=== PATIENT | female | born 1965 | race African-American/Black ===

== ENCOUNTER 2017-02-27 11:05 | Emergency (ER) | payer BC ==
[~2017-02-27] VITALS: Ht 162.6 cm; Wt 108.0 kg
[~2017-02-27 11:05] MED LIST: CIPRO250 MG PO; LORTAB 7.5 PO; NO HOME MEDS
[2017-02-27 13:30] LABS: HEMOGLOBIN 12.6 g/dl (12.0-16.0); IMMATURE GRANULOCYTES 0.2 % (0.0-1.0); MEAN CORPUSCULAR HGB 32.6 pG CALC (26.0-32.0); MEAN CORPUSCULAR HGB CONC 32.3 g/L CALC (32.0-36.0); NEUT# 3.4 thou/uL (2.00-7.15); RED BLOOD COUNT 3.86 mill/uL (4.20-5.60); RED CELL DISTRI WIDTH 13.3 % (11.5-15.5)
[2017-02-27 13:54] LABS: ALBUMIN 3.7 g/dL (3.2-5.0); ALKALINE PHOSPHATASE 101 u/l (38-126); ANION GAP 13 (6-22 (CALC)); BILIRUBIN, TOTAL 1.4 mg/dL (0.0-1.4); BUN 14 mg/dL (7-17); BUN/CREATININE RATIO 14 (12-20 (CALC)); CALCIUM 8.7 mg/dL (8.4-10.2); CARBON DIOXIDE 24 mmol/l (22-30); CHLORIDE 107 mmol/l (95-108); GFR 58 ML/MIN (>=60 (CALC)); GFR FOR AFR.AMER. > 60 ML/MIN (>=60 (CALC)); GLUCOSE 86 mg/dL (65-105); POTASSIUM 4.8 mmol/l (3.5-5.1); SGOT/AST 39 u/l (14-36); SGPT/ALT 16 u/l (9-52); SODIUM 140 mmol/l (137-146); TOTAL PROTEIN 7.7 g/dL (6.3-8.2)
[2017-02-27] MEDS ORDERED: BENADRYL 50MG C50 MG PO (13:55)
[2017-02-27] MEDS ORDERED: PREDNISONE10 MG PO (13:55)
[2017-02-27] MEDS ORDERED: CIMETIDINE400 M1 PO (13:55)
[2017-02-27 14:01] VITALS: BP 172/90
== END 2017-02-27 14:10 | disposition home or self-care (01) | DRG 916 ==
LOC: ED 11:05
PROVIDERS: Emergency Medicine
DX: T78.3XXA Angioneurotic edema, initial encounter (principal)

== ENCOUNTER 2022-11-30 13:31 | Emergency (ER) | payer BC ==
[~2022-11-30] VITALS: Ht 162.6 cm; Wt 94.8 kg
[~2022-11-30 13:31] MED LIST changes: +BENADRYL 50MG C50 MG PO; +CIMETIDINE400 M1 PO; +PREDNISONE10 MG PO
[2022-11-30 14:03] LABS: URINE BILIRUBIN - DIPSTICK NEGATIVE (NEGATIVE); URINE BLOOD DIPSTICK MODERATE (NEGATIVE); URINE COLOR YELLOW; URINE GLUCOSE - DIPSTICK NEGATIVE (NEGATIVE); URINE KETONE NEGATIVE (NEGATIVE); URINE PROTEIN - DIPSTICK NEGATIVE (NEG-TRACE); URINE SPECIFIC GRAVITY 1.025; URINE UROBILINOGEN - DIPSTICK 0.2 E.U./dL (0.2)
[2022-11-30 14:04] LABS: BASO% 0.1 % (0-3); EOS% 0.1 % (0-8); HEMATOCRIT 34.4 % (37.0-47.0); IMMATURE GRANULOCYTES 0.4 % (0.0-5.0); MEAN CELL VOLUME 97.2 fL CALC (80.0-100.0); MEAN CORPUSCULAR HGB 31.1 pG CALC (26.0-32.0); MONO% 4.4 % (2-13); NEUT# 8.36 thou/uL (2.00-7.15); RED BLOOD COUNT 3.54 mill/uL (4.20-5.60); RED CELL DISTRI WIDTH 14.8 % (11.5-15.5)
[2022-11-30 14:05] LABS: URINE LEUK ESTERASE MODERATE (NEGATIVE); URINE NITRITE - DIPSTICK POSITIVE (Negative)
[2022-11-30 14:06] LABS: URINE BACTERIA FEW hpf; URINE SQUAMOUS EPITHELIAL CELL FEW EPI/hpf (0-FEW); URINE WBC 20-50 WBC/hpf (0-5)
[2022-11-30 14:20] LABS: ALBUMIN 3.8 g/dL (3.2-5.0); BILIRUBIN, TOTAL 0.8 mg/dL (0.0-1.4); CREATININE 1.2 mg/dL (0.5-1.0); POTASSIUM 4.2 mmol/l (3.5-5.1); TOTAL PROTEIN 8.7 g/dL (6.3-8.2)
[2022-11-30] MEDS ORDERED: ZOFRAN4 MG/TAB PO (16:16)
[2022-11-30] MEDS ORDERED: LEVAQUIN750 M1 PO (16:16)
[2022-11-30 16:32] VITALS: BP 155/86
--- NOTE | 2022-12-01 08:37 | NUR ---
PATIENT CALLED ABOUT PRELIMINARY CULTURE RESULTS. / GROWING GRAM (-) RODS. ADVISED THE PATIENT TO RETURN TO THE ED FOR TREATMENT. PATIENT REPORTS FEELING BETTER, NO FEVER NO CHILL. PATIENT LEFT AMA DURING VISIT SO I OFFERED TO FAX RESULTS TO PCP BUT PATIENT REPORTS NOT HAVING PCP.
== END 2022-11-30 16:57 | disposition left against medical advice (07) | DRG 690 ==
LOC: ED 13:31
PROVIDERS: Family Medicine
DX: N12 Tubulo-interstitial nephritis, not specified as acute or chronic (principal); B96.20 Unspecified Escherichia coli [E. coli] as the cause of diseases classified elsewhere; Z53.29 Procedure and treatment not carried out because of patient's decision for other reasons
CPT/HCPCS: Q9967

== ENCOUNTER 2023-03-01 15:38 | Emergency (ER) | payer BC ==
[~2023-03-01] VITALS: Ht 162.6 cm; Wt 105.0 kg
[2023-03-01] VITALS (17 sets, daily range): BP systolic 143–210; BP diastolic 76–138
[~2023-03-01 15:38] MED LIST changes: +LEVAQUIN750 M1 PO; +ZOFRAN4 MG/TAB PO
[2023-03-01 17:01] LABS: BASO% 0.2 % (0-3); EOS% 0.7 % (0-8); HEMATOCRIT 38.8 % (37.0-47.0); HEMOGLOBIN 11.8 g/dl (12.0-16.0); IMMATURE GRANULOCYTES 0.2 % (0.0-5.0); MEAN CORPUSCULAR HGB 29.8 pG CALC (26.0-32.0); MEAN CORPUSCULAR HGB CONC 30.4 g/dL CAL (32.0-36.0); MONO% 3.2 % (2-13); NEUT# 6.77 thou/uL (2.00-7.15); NEUT% 80.7 % (42-76); RED BLOOD COUNT 3.96 mill/uL (4.20-5.60); RED CELL DISTRI WIDTH 14.1 % (11.5-15.5)
[2023-03-01 17:17] LABS: URINE BILIRUBIN - DIPSTICK NEGATIVE (NEGATIVE); URINE BLOOD DIPSTICK SMALL (NEGATIVE); URINE COLOR YELLOW; URINE GLUCOSE - DIPSTICK NEGATIVE (NEGATIVE); URINE KETONE NEGATIVE (NEGATIVE); URINE LEUK ESTERASE NEGATIVE (NEGATIVE); URINE PH 6.5 (4.5-8.0); URINE PROTEIN - DIPSTICK NEGATIVE (NEG-TRACE)
[2023-03-01 17:18] LABS: URINE NITRITE - DIPSTICK NEGATIVE (Negative)
[2023-03-01 17:18] LABS: ALBUMIN 4.2 g/dL (3.2-5.0); BILIRUBIN, TOTAL 0.5 mg/dL (0.02-1.3); CREATININE 1.2 mg/dL (0.5-1.0); POTASSIUM 4.6 mmol/l (3.5-5.1); TOTAL PROTEIN 8.8 g/dL (6.3-8.2)
[2023-03-01 17:25] LABS: URINE SQUAMOUS EPITHELIAL CELL FEW EPI/hpf (0-FEW)
[2023-03-01] MEDS ORDERED: LISINOPRIL20 M1 PO (20:25)
== END 2023-03-01 20:59 | disposition home or self-care (01) | DRG 305 ==
LOC: ED 15:38
PROVIDERS: Family Medicine
DX: I10 Essential (primary) hypertension (principal); J06.9 Acute upper respiratory infection, unspecified; T50.2X6A Underdosing of carbonic-anhydrase inhibitors, benzothiadiazides and other diuretics, initial encounter; Z91.128 Patient's intentional underdosing of medication regimen for other reason